=== PATIENT | male | born 1990 | race Two or more races ===

== ENCOUNTER 2017-09-10 15:34 | Emergency (ER) | payer SELFPAY ==
[~2017-09-10] VITALS: Ht 180.3 cm; Wt 76.8 kg
[2017-09-10 15:43] VITALS: Ht 180.3 cm; Wt 76.8 kg
[2017-09-10 18:53] VITALS: BP 135/50
== END 2017-09-10 18:45 | disposition home or self-care (01) ==
LOC: ED 15:34
DX: S52.502A Unspecified fracture of the lower end of left radius, initial encounter for closed fracture (principal); S80.211A Abrasion, right knee, initial encounter; S40.211A Abrasion of right shoulder, initial encounter; V49.9XXA Car occupant (driver) (passenger) injured in unspecified traffic accident, initial encounter; Y93.89 Activity, other specified; Y92.89 Other specified places as the place of occurrence of the external cause; Y99.8 Other external cause status